=== PATIENT | female | born 1990 | race American Indian/Alaskan Native ===

== ENCOUNTER 2017-02-28 21:08 | Emergency (ER) | payer OTHER ==
[2017-03-01 01:23] LABS: Bacteria,Urine 1+ /HPF (Negative); Bilirubin,Urine NEG (Negative); Blood,Urine MOD (Negative); Ketones,Urine NEG (Negative); Leukocyte Esterase,Urine NEG (Negative); Mucus,Urine FEW /HPF; Nitrite,Urine NEG (Negative); Protein,Urine <15 mg/dL mg/dL (Negative)
[2017-03-01] MEDS ORDERED: VALIUM PO ONE (04:03)
[2017-03-01] MEDS ORDERED: TORADOL IM ONE (04:03)
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
--- NOTE | 2017-03-01 04:43 | XRay Report ---
FINAL REPORT EXAM: XR SPINE LUMBOSACRAL 2-3V HISTORY: LOWER BACK PAIN TECHNIQUE: Three views of the lumbar spine were submitted. FINDINGS: There are no skeletal or soft tissue abnormalities. IMPRESSION: Normal exam.
--- NOTE | 2017-03-01 04:44 | XRay Report ---
FINAL REPORT EXAM: XR SPINE CERVICAL 2-3V HISTORY: NECK PAIN TECHNIQUE: Three views of the cervical spine were obtained. FINDINGS: There is straightening of the usual cervical lordosis. The disc heights and alignment appear normal. The prevertebral soft tissues and C1-C2 articulation appear intact. IMPRESSION: Straightening of the usual cervical lordosis secondary to patient positioning versus spasm.
--- NOTE | 2017-03-01 04:44 | XRay Report ---
FINAL REPORT EXAM: XR SHOULDER 2+V RT HISTORY: RIGHT SHOULDER PAIN TECHNIQUE: Four views the right shoulder were obtained. FINDINGS: The AC joint and glenohumeral joint appear normal. The subacromial space appears normal. Soft tissues appear normal. IMPRESSION: Normal exam.
[2017-03-01 05:17] VITALS: BP 130/87
== END 2017-03-01 05:43 | disposition home or self-care (01) ==
LOC: ED 21:08
DX: M25.511 Pain in right shoulder (principal); M54.5 Low back pain; M62.838 Other muscle spasm; V49.19XA Passenger injured in collision with other motor vehicles in nontraffic accident, initial encounter; Y93.89 Activity, other specified; Y92.89 Other specified places as the place of occurrence of the external cause; Y99.8 Other external cause status
CPT/HCPCS: 36415; 72040; 72100; 73030; 81001; 84703; 96372; 99284; J1885

== ENCOUNTER 2018-02-02 18:00 | Emergency (ER) | payer SELFPAY | END 2018-02-02 18:35 | disposition left against medical advice (07) | LOC: ED 18:00 | DX: N93.9 Abnormal uterine and vaginal bleeding, unspecified (principal); Z53.21 Procedure and treatment not carried out due to patient leaving prior to being seen by health care provider ==

== ENCOUNTER 2020-01-30 15:32 | Emergency (ER) | payer MEDICAID ==
[2020-01-30 17:08] LABS: Bilirubin,Urine NEG (Negative); Blood,Urine SM (Negative); Color,Urine Yellow (Yellow); Mucus,Urine 3+ /HPF; Protein,Urine <15 mg/dL mg/dL (Negative)
[2020-01-30 17:12] LABS: Basophils % (Auto) 0.5 % (0.0-1.8); Eosinophils % (Auto) 0.6 % (0.0-4.3); Hematocrit 37.7 % (30.3-42.9); Hemoglobin 12.7 gm/dl (10.1-14.3); Lymphocytes # (Auto) 2.1 K/mm3 (1.2-5.4); Mean Corpuscular HGB Conc 34 % (30-34); Mean Corpuscular Volume 92 fl (79-97); Monocytes # (Auto) 0.6 K/mm3 (0.0-0.8); Monocytes % (Auto) 7.9 % (0.0-7.3); Platelet Count 348 K/mm3 (140-440); Red Blood Count 4.09 M/mm3 (3.65-5.03); Red Cell Distribution Width 14.9 % (13.2-15.2)
[2020-01-30 17:35] LABS: Alanine Aminotransferase 8 units/L (7-56); Albumin 4.3 g/dL (3.9-5); Blood Urea Nitrogen 8 mg/dL (7-17); Calcium 9.7 mg/dL (8.4-10.2); Hemolysis Index 2
[2020-01-30 17:41] LABS: BUN/Creatinine Ratio 13
== END 2020-01-30 19:05 | disposition left against medical advice (07) ==
LOC: ED 15:32
DX: O20.9 Hemorrhage in early pregnancy, unspecified (principal); Z3A.01 Less than 8 weeks gestation of pregnancy; Z53.21 Procedure and treatment not carried out due to patient leaving prior to being seen by health care provider
CPT/HCPCS: 36415; 80053; 81001; 84702; 85025; 86900; 86901